=== PATIENT | female | born 1965 | race Caucasian/White ===

== ENCOUNTER 2017-12-24 15:30 | Emergency (ER) | payer MEDICARE, OTHER ==
[~2017-12-24] VITALS: Ht 162.6 cm; Wt 56.0 kg
[~2017-12-24 15:30] MED LIST: DIPH-423 PO; DULO20CA50 PO; FAMO-1 PO; ONDA4TAB59 PO; SUMA25TA35 PO; TRAZ-91 PO
[2017-12-24 16:50] LABS: BASOPHILS % (AUTO) 0.4 % (0-1); EOSINOPHILS # (AUTO) 0.1 X10'3 (0-0.9); EOSINOPHILS % (AUTO) 1.7 % (0-6); HEMATOCRIT 40.4 % (35.0-45.0); HEMOGLOBIN 13.9 g/dl (12.0-16.0); LYMPHOCYTES # (AUTO) 2.2 X10'3 (1.1-4.8); LYMPHOCYTES % (AUTO) 26.1 % (21-51); MEAN CORPUSCULAR HEMOGLOBIN 31.7 PG (27.0-31.0); MEAN CORPUSCULAR HGB CONC 34.3 % (33.0-36.5); MEAN CORPUSCULAR VOLUME 92.6 FL (78-98); MEAN PLATELET VOLUME 8.4 FL (7.4-10.4); MONOCYTES # (AUTO) 0.7 X10'3 (0-0.9); MONOCYTES % (AUTO) 8.8 % (2-12); NEUTROPHILS # (AUTO) 5.3 X10'3 (1.8-7.7); PLATELET COUNT 154 X10'3 (140-440); RED BLOOD COUNT 4.37 X10'6 (4.20-5.60); RED CELL DISTRIBUTION WIDTH 13.5 % (11.5-14.5); WHITE BLOOD COUNT 8.4 X10'3 (4.5-11.0)
[2017-12-24 17:00] LABS: PARTIAL THROMBOPLASTIN TIME 25 SECONDS (22-32)
[2017-12-24 17:05] LABS: ALANINE AMINOTRANSFERASE 21 U/L (12-78); ALBUMIN 3.7 G/DL (3.4-5.0); ALBUMIN/GLOBULIN RATIO 1.3 (1.1-1.5); ALKALINE PHOSPHATASE 64 IU/L (46-116); ANION GAP 8 (8-16); ASPARTATE AMINO TRANSFERASE 15 U/L (10-37); BILIRUBIN,TOTAL 0.3 MG/DL (0.1-1.0); BLOOD UREA NITROGEN 13 MG/DL (7-18); BUN/CREATININE RATIO 13.8 (6.6-38.0); CALCIUM 8.6 MG/DL (8.5-10.1); CHLORIDE 108 MMOL/L (99-107); CREATININE 0.94 MG/DL (0.40-0.90); GLUCOSE 82 MG/DL (70-104); POTASSIUM 3.7 MMOL/L (3.5-5.1); SODIUM 145 MMOL/L (135-145); TOTAL CARBON DIOXIDE 28.7 MMOL/L (24-32); TOTAL PROTEIN 6.6 G/DL (6.4-8.2); eGFR 62 ML/MIN
[2017-12-24 17:53] VITALS: BP 112/65
== END 2017-12-24 17:54 | disposition home or self-care (01) ==
LOC: ER 15:31
DX: R55 Syncope and collapse (principal); Z79.899 Other long term (current) drug therapy
CPT/HCPCS: 36415; 71045; 80053; 84484; 85025; 85610; 85730; 93005; 93880; 99285

== ENCOUNTER 2020-03-30 20:16 | Emergency (ER) | payer MEDICARE, MEDICAID ==
[~2020-03-30] VITALS: Ht 162.6 cm; Wt 55.6 kg
[2020-03-30 21:45] VITALS: BP 107/60
== END 2020-03-30 21:46 | disposition home or self-care (01) ==
LOC: ER 20:17
DX: S43.401A Unspecified sprain of right shoulder joint, initial encounter (principal); Z88.5 Allergy status to narcotic agent; Z79.899 Other long term (current) drug therapy; X50.1XXA Overexertion from prolonged static or awkward postures, initial encounter; Y93.89 Activity, other specified; Y92.89 Other specified places as the place of occurrence of the external cause; Y99.9 Unspecified external cause status
CPT/HCPCS: 73030; 99283

== ENCOUNTER 2020-09-30 15:01 | Emergency (ER) | payer MEDICARE, MEDICAID ==
[~2020-09-30] VITALS: Ht 162.6 cm; Wt 53.5 kg
[2020-09-30 15:25] VITALS: BP 109/66
[2020-09-30] MEDS ORDERED: PRED20TA PO (17:07)
== END 2020-09-30 17:41 | disposition home or self-care (01) ==
LOC: ER 16:00
DX: S92.532A Displaced fracture of distal phalanx of left lesser toe(s), initial encounter for closed fracture (principal); M79.672 Pain in left foot; R05 Cough; F41.9 Anxiety disorder, unspecified; F32.9 Major depressive disorder, single episode, unspecified; F17.200 Nicotine dependence, unspecified, uncomplicated; F19.90 Other psychoactive substance use, unspecified, uncomplicated; Z88.8 Allergy status to other drugs, medicaments and biological substances; Z79.899 Other long term (current) drug therapy; X58.XXXA Exposure to other specified factors, initial encounter; Y93.89 Activity, other specified; Y92.89 Other specified places as the place of occurrence of the external cause; Y99.8 Other external cause status
CPT/HCPCS: 71045; 73630; 99284

== ENCOUNTER 2022-01-29 16:02 | Emergency (ER) | payer OTHER, MEDICAID ==
[~2022-01-29] VITALS: Ht 162.6 cm; Wt 59.1 kg
[2022-01-29 16:17] VITALS: BP 124/74
[2022-01-29] MEDS ORDERED: TRAM50TA2 PO (17:24)
[2022-01-29] MEDS ORDERED: IBUP-1986 PO (17:24)
== END 2022-01-29 17:39 | disposition home or self-care (01) ==
LOC: ER 16:02
DX: M77.8 Other enthesopathies, not elsewhere classified (principal); M25.512 Pain in left shoulder; F41.9 Anxiety disorder, unspecified; F32.A Depression, unspecified; Z72.89 Other problems related to lifestyle; Z88.8 Allergy status to other drugs, medicaments and biological substances; Z79.899 Other long term (current) drug therapy
CPT/HCPCS: 73030; 99283

== ENCOUNTER 2025-04-09 12:45 | Emergency (ER) | payer BC, MEDICAID ==
[~2025-04-09] VITALS: Ht 162.6 cm; Wt 65.6 kg
[~2025-04-09 12:45] MED LIST changes: +IBUP-1986 PO
[2025-04-09 12:57] VITALS: TEMP 98.2
--- NOTE | 2025-04-09 15:29 | Physician Documentation ---
History of Present Illness ~ Chief Complaint: Headache Stated Complaint: FALL X4DAYS AG/HEAD STRIKE/DIZZINESS/RIB PAIN Time Seen by MD: 17:17 OK to notify your PCP?: Yes Primary Medical Doctor: Dr Martin [facility] This 59-year-old female presents four days after a mechanical ground level fall in which she hit the back of her head causing her to briefly lose consciousness, patient reports no use of blood thinners and no persistent vomiting or confusion after the fall. Patient reports she feels as if she is a concussion as she has experienced a concussion before and reports a headache and slightly blurred vision. Patient additionally reports that she struck her left ribcage the fall. Reports some and back pain. Patient reports no new weakness or numbness in extremities, no saddle paresthesia, and no loss of bowel or bladder control. Tetanus within 5 years?: Yes Medication Reconciliation Allergies: Coded Allergies: hydrocodone bit (Verified Allergy, Unknown, 04/09/25) Scheduled Diphenhydramine Hcl* (Benadryl*), 25 MG PO Q6H Duloxetine Hcl* (Cymbalta*), MG PO DAILY, (Reported) Famotidine* (Pepcid*), 20 MG PO DAILY Ibuprofen (Ibuprofen), 1 TAB PO Q8H Ondansetron Hcl (Ondansetron Hcl), 4 MG PO Q8H PRN N/V Sumatriptan Succinate* (Imitrex Tab*), MG PO DAILY, (Reported) Trazodone Hcl* (Trazodone Hcl*), MG PO BID, (Reported) Past Medical History Past Medical History: Anxiety, Depression Past Surgical History: no surgical history Alcohol Use: None Drug Use: other Lives with: Family Lives In: Home Review of Systems ROS Posterior head pain, posterior neck pain, thoracolumbar back pain, rib pain as stated above in the HPI, otherwise all systems are reviewed and negative. Physical Exam Vital Signs: Temperature: 98.2, Source: Temporal, Heart Rate: 72, Respiratory Rate: 19, BP: 98/64, Pulse Oximetry: 96, Weight: 65.600 Oxygen Flow Rate: 0 Physical Exam VITALS: Reviewed and as above. GENERAL: Alert and oriented x4, nontoxic appearing, no apparent distress. HEENT: Neck tender to palpation without focal midline tenderness to palpation, no step-offs, no crepitus, patient moving head and neck within normal ROM RESPIRATORY: No increased work of breathing, no respiratory distress, speaking in full clear sentences BACK: Thoracolumbar back pain with central tenderness without step-off or crepitus MUSCULOSKELETAL: No deformity, nontender to palpation Progress Results/Orders Results/Orders Orders - LICO LOW BEVEL POLISHER Ct Head (04/09/25 16:10) Ribs,Unilat (04/09/25 15:30) Cervical Spine Ltd (04/09/25 15:30) Thoracic Spine Litd (04/09/25 15:30) Lumbar Spine Limited (04/09/25 15:30) Completed Orders - LICO LOW BEVEL POLISHER Ct Head (04/09/25 16:10) Ribs,Unilat (04/09/25 15:30) Cervical Spine Ltd (04/09/25 15:30) Thoracic Spine Litd (04/09/25 15:30) Lumbar Spine Limited (04/09/25 15:30) Ketorolac Trometh 15mg/Ml Vial (Toradol (04/09/25 17:40) Vital Signs 04/09/25 04/09/25 04/09/25 04/09/25 12:57 16:35 17:10 17:14 Temp 98.2 Pulse 72 53 61 Resp 19 16 B/P (MAP) 98/64 106/64 (78) 103/61 (75) Pulse Ox 96 98 97 O2 Flow Rate 0 0 0 04/09/25 04/09/25 18:02 18:46 Pulse 57 Resp 16 B/P (MAP) 110/71 Pulse Ox 98 EKG/XRAY/CT/US/VASC/MRI Chest X-Ray : Additional Comments CHEST RADIOGRAPH Indication: Fall With Back Pain Technique: Radiographs of the chest and left ribs Comparison: None FINDINGS: The cardiac silhouette is unremarkable. The lungs demonstrate no pulmonary airspace consolidation. The pulmonary vasculature is unremarkable. There is no pleural effusion.. There is no pneumothorax. No radiographic evidence for left rib fracture IMPRESSION: 1. No pulmonary airspace consolidation. Electronically Signed by:GRISELDA HAMPTON MD Date & Time: 04/09/25 1643 Dictated by: GRISELDA HAMPTON MD Dictation date and time: 04/09/25 1545 Bone/Soft Tissue X-Ray (Spine) #1: Additional Comment INDICATION: Fall With Back Pain TECHNIQUE: AP and lateral views of the thoracic spine were obtained. COMPARISON: None FINDINGS: No fracture, scoliosis, or listhesis of the thoracic spine. There is mild thoracic degenerative disc disease. There are likely old rib fractures. There are right upper quadrant calcifications. IMPRESSION: 1. No fracture of the thoracic spine. 2. Mild thoracic spondylosis. 3. Calcifications in the right upper quadrant may be due to cholelithiasis and/or nephrolithiasis. Electronically Signed by:SAMIRA SEGURA MD Date & Time: 04/09/25 1638 Dictated by: SAMIRA SEGURA MD Dictation date and time: 04/09/25 1638 Bone/Soft Tissue X-Ray (Spine) #2: Additional Comment EXAM: DI LUMBAR SPINE LIMITED HISTORY: Fall With Back Pain COMPARISON: None TECHNIQUE: AP and lateral views of the lumbar spine and spot lateral of the lumbosacral junction were performed. FINDINGS: No fracture or listhesis of the lumbar spine. There is moderate degenerative disc disease and facet arthropathy. There are calcifications in the right upper quadrant. IMPRESSION: 1. Degenerative changes of the lumbar spine without evidence of fracture. 2. Calcifications in the right upper quadrant may be due to cholelithiasis and/or nephrolithiasis. Electronically Signed by:SAMIRA SEGURA MD Date & Time: 04/09/25 163 Dictated by: SAMIRA SEGURA MD Dictation date and time: 04/09/25 163 Bone/Soft Tissue X-Ray (Spine) #3: Additional Comment EXAM: DI CERVICAL SPINE LTD HISTORY: Fall With Back Pain COMPARISON: None TECHNIQUE: AP, lateral, and odontoid views of the cervical spine were performed. FINDINGS: No cervical spine fractures are identified. There is moderate to severe cerv ical degenerative disc disease and facet arthropathy. There is 2 mm anterior listhesis C4 on C5. The patient is completely edentulous. IMPRESSION: Degenerative changes of the cervical spine without evidence of fracture. Consider follow-up noncontrast MRI of the cervical spine for better characterization, especially if the patient complains of upper extremity radicular symptoms. Electronically Signed by:SAMIRA SEGURA MD Date & Time: 04/09/25 1635 Dictated by: SAMIRA SEGURA MD Dictation date and time: 04/09/25 1635 CT : Impression CT brain without contrast CLINICAL INDICATION: Headstrike w/LOC FINDINGS: The study was performed in a multidetector scanner. This study performed taking axial images from the skull base up to the vertex. Both brain and bone windows are photographed. Dose lowering techniques have been used including automated exposure control and adjustment of mA and/or KV according to patient size. Normal and symmetrical shape and density of brain parenchyma above and below the tentorium is seen. There is no mass, midline shift or hydrocephalus. No intra/extra-axial collections demonstrated. There is no intracranial hemorrhage. The calvarium is intact. IMPRESSION: 1. Normal brain and skull. Computed Tomographic Radiation Dosimetry Report: Total CTDI vol = 54 mGy Total DLP = 982 mGy-cm All CT scans at this medical facility are performed using dose modulation techniques as appropriate to a performed exam including the following: Automated exposure control was utilized; adjustment of the MA and/or KvP according to patient size; and use of iterative reconstruction technique. Electronically Signed by:MIRA MICHELE MD Date & Time: 04/09/25 1628 Dictated by: MIRA MICHELE MD Dictation date and time: 04/09/25 1610 I have reviewed and agree with the radiology report. I have reviewed and interpreted the imaging as: No intracranial hemorrhage Medical Decision Making Findings This 59-year-old female presented with posterior head pain, posterior neck pain, thoracolumbar back pain, and left rib pain following a ground level trip and fall resulting with head strike and brief loss of consciousness, reassuring patient was not on blood thinners and is not reporting vomiting or confusion following injury. Additionally reassuring that a CT was negative for intracranial hemorrhage along with plain films of spine negative for or spinal fracture or traumatic misalignment. Based on patient's history and physical symptoms are consistent with concussion along with soft tissue injuries to the posterior neck and back and contusion to left chest wall. Patient reported feeling significantly better after Toradol injection and feels otherwise well and is ready to go home. This patient is hemodynamically stable with relatively benign physical exam she is appropriate for outpatient follow up. Patient provided home care instructions, return to care precautions, and follow up instructions which she verbalized understanding of. Differential Dx:Considerations: Include: Closed head injury, Cervical spine injury, Skull facture, Fracture, Abrasion, Laceration Departure Time of Disposition: 18:34 Disposition: 01 HOME / SELF CARE / HOMELESS Impression: Primary Impression: Concussion with loss of consciousness Qualified Codes: S06.0X9A - Concussion with loss of consciousness of unspecified duration, initial encounter Additional Impressions: Headache Qualified Codes: R51.9 - Headache, unspecified Rib pain on left side Discharge Instructions: Concussion, Adult, Rib Contusion, Post Concussion Syndrome,Adult Additional Instructions: Based on your symptoms you you have a concussion, please use ibuprofen and or Tylenol as needed as directed by the [id number] packaging for your headache, please return to the emergency department for new or worsening conditions including persistent vomiting or confusion. Otherwise please follow up with your primary care provider in the next few days for recheck. Please see the attached home care instructions for concussion care, you may also Internet search CDC concussion guidelines pain Referrals: NO PRIMARY CARE PROVIDER (PCP) Education Educated: Patient Educated regarding: diagnosis, treatment, prognosis, need for follow up Signature Scribe Signature: No scribe Attestation: The note accurately reflects work and decisions made by me.PASTOR Quevedo 04/10/25 03:24 LICO LOW Apr 09, 2025 15:29
--- NOTE | 2025-04-09 16:30 | RADIOLOGY REPORT ---
CT brain without contrast CLINICAL INDICATION: Headstrike w/LOC FINDINGS: The study was performed in a multidetector scanner. This study performed taking axial image s from the skull base up to the vertex. Both brain and bone windows are photographed. Dose lowering techniques have been used including automated exposure control and adjustment of mA and /or KV according to patient size. Normal and symmetrical shape and density of brain parenchyma above and below the tentorium is seen. T here is no mass, midline shift or hydrocephalus. No intra/extra-axial collections demonstrated. There is no intracranial hemorrhage. The calvarium is intact. IMPRESSION: 1. Normal brain and skull. Computed Tomographic Radiation Dosimetry Report: Total CTDI vol = 54 mGy Total DLP = 982 mGy-cm All C T scans at this medical facility are performed using dose modulation techniques as appropriate to a p erformed exam including the following: Automated exposure control was utilized; adjustment of the MA and/or KvP according to patient size; and use of iterative reconstruction technique.
--- NOTE | 2025-04-09 16:35 | RADIOLOGY REPORT ---
EXAM: DI LUMBAR SPINE LIMITED HISTORY: Fall With Back Pain COMPARISON: None TECHNIQUE: AP and lateral views of the lumbar spine and spot lateral of the lumbosacral junction were performed. FINDINGS: No fracture or listhesis of the lumbar spine. There is moderate degenerative disc disease and facet arthropathy. There are calcifications in the right upper quadrant. IMPRESSION: 1. Degenerative changes of the lumbar spine without evidence of fracture. 2. Calcifications in the right upper quadrant may be due to cholelithiasis and/or nephrolithiasis.
--- NOTE | 2025-04-09 16:38 | RADIOLOGY REPORT ---
EXAM: DI CERVICAL SPINE LTD HISTORY: Fall With Back Pain COMPARISON: None TECHNIQUE: AP, lateral, and odontoid views of the cervical spine were performed. FINDINGS: No cervical spine fractures are identified. There is moderate to severe cervical degenerative disc d isease and facet arthropathy. There is 2 mm anterior listhesis C4 on C5. The patient is completely edentulous. IMPRESSION: Degenerative changes of the cervical spine without evidence of fracture. Consider follow-up noncontr ast MRI of the cervical spine for better characterization, especially if the patient complains of upp er extremity radicular symptoms.
--- NOTE | 2025-04-09 16:41 | RADIOLOGY REPORT ---
INDICATION: Fall With Back Pain TECHNIQUE: AP and lateral views of the thoracic spine were obtained. COMPARISON: None FINDINGS: No fracture, scoliosis, or listhesis of the thoracic spine. There is mild thoracic degenera tive disc disease. There are likely old rib fractures. There are right upper quadrant calcifications. IMPRESSION: 1. No fracture of the thoracic spine. 2. Mild thoracic spondylosis. 3. Calcifications in the right upper quadrant may be due to cholelithiasis and/or nephrolithiasis.
--- NOTE | 2025-04-09 16:45 | RADIOLOGY REPORT ---
CHEST RADIOGRAPH Indication: Fall With Back Pain Technique: Radiographs of the chest and left ribs Comparison: None FINDINGS: The cardiac silhouette is unremarkable. The lungs demonstrate no pulmonary airspace consolidation. Th e pulmonary vasculature is unremarkable. There is no pleural effusion.. There is no pneumothorax. No radiographic evidence for left rib fracture IMPRESSION: 1. No pulmonary airspace consolidation.
[2025-04-09 18:02] VITALS: RESP 16
[2025-04-09] MEDS: ketorolac trometh 15mg/ml vial 15 MG/ML ML IM ONE (18:02)
[2025-04-09 18:46] VITALS: BP 110/71; PULSE 57; O2SAT 98
== END 2025-04-09 18:47 | disposition home or self-care (01) ==
LOC: ER 12:46
DX: S06.0X9A Concussion with loss of consciousness of unspecified duration, initial encounter (principal); R07.81 Pleurodynia; M54.2 Cervicalgia; F41.9 Anxiety disorder, unspecified; F32.A Depression, unspecified; Z88.8 Allergy status to other drugs, medicaments and biological substances; W19.XXXA Unspecified fall, initial encounter; Y93.89 Activity, other specified; Y92.89 Other specified places as the place of occurrence of the external cause; Y99.8 Other external cause status
CPT/HCPCS: 70450; 71100; 72040; 72070; 72100; 96372; 99285; J1885